=== PATIENT | female | born 1980 | race Caucasian/White ===

== ENCOUNTER 2016-09-18 11:36 | Emergency (ER) | payer SELFPAY ==
[2016-09-18 12:04] VITALS: BP 143/95; PULSE 113; TEMP 98.6; BMI 26.6
--- NOTE | 2016-09-18 12:04 | EDPRACDOC ---
- General Information Chief Complaint: Sore Throat Stated Complaint: SORE THROAT Time Seen by Provider: 09/18/16 11:55 Home Medications: Home Medications Amoxicillin Trihydrate [Amoxicillin] 500 mg PO TID #30 tab 09/18/16 Cetirizine HCl [Zyrtec] 10 mg PO DAILY 09/18/16 Naproxen 500 mg PO BID PRN 09/18/16 Pantoprazole Sodium [Protonix] 40 mg PO DAILY 09/18/16 Prednisone [Deltasone, Orasone] 40 mg PO DAILY 5 Days 09/18/16 Allergies/Adverse Reactions: Allergies Allergy/AdvReac Type Severity Reaction Status Date / Time Sulfa (Sulfonamide Allergy Intermediate Rash-Locali Verified 09/18/16 12:16 Antibiotics) zed - History of Present Illness Onset: THIS MORNING HPI: PT STATES SHE WOKE UP THIS MORNING WITH A "SWOLLEN UVULA" AND SORE THROAT, STATES STARTED NAPROXEN YESTERDAY FOR KNEE PAIN. Sore Throat Symptoms: Reports: Pain, Other (SWOLLEN UVULA). Denies: Muffled Voice, Hoarse, Secretion Difficulty White Spots Location: Denies: Lips, Tongue, Buccal Membrane, Gingiva, Palate, Pharynx, Other Recent: Reports: None Relevant History of: Reports: None Pain Severity: Reports: Mild Urinary Output: Normal Oral Intake: Normal Associated Signs and Symptoms: Denies: Fever, Chills, Rash, Cough, Nasal Symptoms, Earache, Abdominal Pain ED Past Medical History - History Reviewed Yes Nurses notes reviewed and agree except as marked - Patient Medical History Systemic History: Reports: Anemia Surgical History: Reports: Hysterectomy - Family Medical History Reports: Diabetes (MATERNAL AUNT). Denies: Hypertension, Cancer, Stroke, Cardiac Disorders - Social Medical History Smoking Status: Never smoker EDM Review of Systems - Review of Systems Constitutional: negative: Chills, Fever Eyes: negative: Blurred Vision, Double Vision Ears: negative: Drainage, Pain Throat: Pain, Swelling (UVULA) Nose: negative: Congestion, Discharge Respiratory: negative: Cough Gastrointestinal: negative: Nausea, Vomiting Neurological: negative: Headache Integumentary: negative: Rash - Physical Exam Constitutional: Alert (Awake), No apparent distress Oriented to: Time, Person, Place Last recorded Vital Signs: Last Vital Signs Temp 98.6 F 09/18/16 11:58 Pulse 113 09/18/16 11:58 Resp 20 09/18/16 11:58 BP 143/95 09/18/16 11:58 Pulse Ox 98 09/18/16 11:58 Oxygen Pulse Oxygen Saturation 98 O2 Device Room Air Oxygen Flow Rate Fraction of Inspired Oxygen ( FIO2) - HEENT Head: Normal ( normocephalic) Eye Exam: Normal (PERRL, EOMI, Sclera white) Oropharynx: Red, Other (UVULA SWOLLEN, MID-LINE POSITION). negative: Tonsillar Hypertrophy Tympanic Membrane: Normal ENT EAC: Normal TMJ: Normal Nose: No Symptoms Reported (septum midline) Neck: Normal (FROM, trachea at midline) - Respiratory/Cardiovascular Respiratory: Normal - CTA (BBS clear to auscultation without adventitious sounds ) Cardiovascular: Normal (RRR without murmur, gallop or rub) - Integumentary Skin: Normal, Warm, Dry Lymphatics: Normal (no adenopathy) - Neurologic Memory Impaired: Normal Motor Function: Normal (Normal tone, Pulses 2+ No cyanosis or edema, FROM) Cranial Nerve: Normal (CN II-X11 intact sensation, strength 5/5) Cerebellar: Normal Mood Description: Normal Perception: Normal - Differential Diagnosis Epiglottitis, Pharyngitis Streptococcal, Pharyngitis Viral - Re-evaluation Re-evaluation 1 Re-evaluation Time: 12:45 (STABLE, NO RESP DISTRESS, NO DIFFICULTY SWALLOWING OR SECRETION DIFFICULTY) - Results 09/18/16 12:41 Microbiology 09/18/16 12:01 Throat - Rapid Strep Group A Streptococcus Rapid Screen - Final NEGATIVE ("NORMAL" value = "NEGATIVE".) Decision Time to Discharge: 12:45 - Departure Disposition: Home Condition: Stable Final Diagnosis: Acute pharyngitis Instructions: Pharyngitis (ED) Education/Counseling Given To: Patient Education/Counseling Given Regarding: Diagnosis, Treatment, Prognosis, Follow Up Referrals: Martine Teran DO [Primary Care Provider] - One Week Prescriptions: Amoxicillin Trihydrate [Amoxicillin] 500 mg PO TID #30 tab Prednisone [Deltasone, Orasone] 40 mg PO DAILY 5 Days Additional Instructions: USE TYLENOL OR MOTRIN NEEDED FOR PAIN, REST, DRINK PLENTY OF FLUIDS, RETURN TO THE ED FOR ANY WORSENING SYMPTOMS OR CONCERNS.
[2016-09-18] MEDS ORDERED: PREDNISONE 10 MG TAB PO ONE (12:05)
== END 2016-09-18 13:05 | disposition home or self-care (01) ==
LOC: EDMC 11:36
DX: J02.9 Acute pharyngitis, unspecified (principal)
CPT/HCPCS: 87880; 99282; J3490